=== PATIENT | female | born 1960 | race Caucasian/White ===

== ENCOUNTER 2017-07-24 07:45 | Emergency (ER) | payer BC ==
[~2017-07-24] VITALS: Ht 157.5 cm; Wt 113.6 kg
[2017-07-24 07:55] VITALS: BP 132/66; PULSE 96; TEMP 99.3
[2017-07-24] MEDS ORDERED: PROZAC40 MG PO (07:57)
[2017-07-24] MEDS ORDERED: GLUCOPHAGE1000 MG PO (07:57)
[2017-07-24] MEDS ORDERED: AMBIEN 10MG10 MG PO (07:58)
[2017-07-24] MEDS ORDERED: FLONASE NASAL S16 GM NS (07:58)
[2017-07-24] MEDS ORDERED: PROTONIX 40MG T40 MG PO (07:58)
[2017-07-24] MEDS ORDERED: CRUTCHES MC (09:10)
== END 2017-07-24 09:47 | disposition home or self-care (01) ==
LOC: COL.ER 07:45
DX: M76.72 Peroneal tendinitis, left leg (principal); E11.9 Type 2 diabetes mellitus without complications; F32.9 Major depressive disorder, single episode, unspecified; K21.9 Gastro-esophageal reflux disease without esophagitis; Z79.84 Long term (current) use of oral hypoglycemic drugs; X50.1XXA Overexertion from prolonged static or awkward postures, initial encounter; Y92.009 Unspecified place in unspecified non-institutional (private) residence as the place of occurrence of the external cause

== ENCOUNTER → 2017-08-26 | Outpatient (CLI) | payer BC ==
[~2017-08-26] MED LIST: AMBIEN 10MG10 MG PO; CRUTCHES MC; FLONASE NASAL S16 GM NS; GLUCOPHAGE1000 MG PO; PROTONIX 40MG T40 MG PO; PROZAC40 MG PO
== END ==
LOC: MC.RAD 09:20
DX: Z12.31 Encounter for screening mammogram for malignant neoplasm of breast (principal)

== ENCOUNTER → 2018-08-20 | Outpatient (CLI) | payer BC | LOC: SUN.DIA 07-30 08:22 | DX: E11.9 Type 2 diabetes mellitus without complications (principal); E66.9 Obesity, unspecified | CPT/HCPCS: G0108 ==

== ENCOUNTER → 2018-09-03 | Outpatient (CLI) | payer BC | LOC: SUN.DIA 09:27 | DX: E11.9 Type 2 diabetes mellitus without complications (principal); E66.9 Obesity, unspecified | CPT/HCPCS: G0108 ==

== ENCOUNTER → 2018-11-18 | Outpatient (CLI) | payer BC | LOC: SUN.DIA 09-23 14:30 | DX: E11.9 Type 2 diabetes mellitus without complications (principal); E66.9 Obesity, unspecified | CPT/HCPCS: G0109 ==

== ENCOUNTER → 2018-11-25 | Outpatient (CLI) | payer BC | LOC: SUN.DIA 16:46 | DX: E11.9 Type 2 diabetes mellitus without complications (principal); E66.9 Obesity, unspecified | CPT/HCPCS: G0109 ==

== ENCOUNTER → 2018-12-02 | Outpatient (CLI) | payer BC | LOC: SUN.DIA 15:15 | DX: E11.9 Type 2 diabetes mellitus without complications (principal); E66.9 Obesity, unspecified | CPT/HCPCS: G0109 ==

== ENCOUNTER → 2018-12-09 | Outpatient (CLI) | payer BC | LOC: SUN.DIA 14:51 | DX: E11.9 Type 2 diabetes mellitus without complications (principal); E66.9 Obesity, unspecified | CPT/HCPCS: G0109 ==

== ENCOUNTER → 2019-03-01 | Outpatient (CLI) | payer BC | LOC: MC.RAD 11:30 | DX: Z12.31 Encounter for screening mammogram for malignant neoplasm of breast (principal) ==

== ENCOUNTER → 2021-04-11 | Outpatient (CLI) | payer BC | LOC: COL.PUL 11:15 | DX: R05 Cough (principal); R06.00 Dyspnea, unspecified; Z87.891 Personal history of nicotine dependence ==